=== PATIENT | female | born 1975 | race Caucasian/White ===

== ENCOUNTER 2018-04-25 17:25 | Emergency (ER) | payer BC ==
[~2018-04-25] VITALS: Ht 165.1 cm; Wt 63.5 kg
[2018-04-25 17:33] VITALS: BP_SYST 166
--- NOTE | 2018-04-25 17:33 | NUR ---
Patient to ER bed 07 to gown for evaluation. Side rails up. Report received from [address]
--- NOTE | 2018-04-25 17:35 | NUR ---
Patient presents to the ED complaining of bilateram arm numbness and left leg numbess beginning this morning. Patient reports that she has history of stroke. Denies any pain. Patient states that she wasn't feeling well this morning and took Xanax 0.25 mg and another dose of Xanax 0.25 mg prior to arrival in ED. Patient reports seeing tunnel vision as well. Patient is speaking in clear full sentences. No deficits noted. No other complaints/injuries per patient or as noted. Will continue to monitor.
--- NOTE | 2018-04-25 17:38 | NUR ---
ER Dr. Montilla at bedside examining patient.
--- NOTE | 2018-04-25 17:50 | NUR ---
# 20 gauge angiocath placed to RAC. Use of asceptic technique. Opsite placed over site. Blood return noted. Blood for lab drawn from site. Flushed with 10 cc of normal saline. No evidence of infiltration noted. Patient tolerated well.
--- NOTE | 2018-04-25 17:53 | NUR ---
Urine specimen collected and analyzed and sent to lab for analyzing. Urine HCG done, results Neg
--- NOTE | 2018-04-25 17:58 | NUR ---
EKG performed at BS by GAGANDEEP Rivera. Physician given copy of EKG for review.
[2018-04-25 18:10] LABS: BILIRUBIN,URINE NEGATIVE (NEGATIVE); BLOOD, URINE 2+ (NEGATIVE); CLARITY/URINE CLEAR (CLEAR); COLOR,URINE YELLOW (YELLOW); GLUCOSE,URINE NEGATIVE (NEGATIVE); KETONES,URINE NEGATIVE (NEGATIVE); LEUKOCYTE ESTERASE ,URINE NEGATIVE (NEGATIVE); NITRITE, URINE NEGATIVE (NEGATIVE); PROTEIN URINE NEGATIVE (NEGATIVE); UROBILINOGEN,URINE 0.2 (0.2-1.0)
[2018-04-25 18:17] LABS: WBC,URINE 0-3 /HPF (0-3)
[2018-04-25 18:17] LABS: BASOPHILS # (AUTO) 0.1 K/uL (0.0-0.2); BASOPHILS % (AUTO) 0.9 % (0.0-2.0); EOSINOPHILS # (AUTO) 0.1 K/uL (0.0-0.4); HEMOGLOBIN 13.9 g/dL (12.0-16.0); LYMPHOCYTES # (AUTO) 1.7 K/uL (1.0-5.5); LYMPHOCYTES % (AUTO) 24.7 % (20.5-51.5); MEAN CORPUSCULAR HEMOGLOBIN 31 pg (27-31); MEAN CORPUSCULAR HGB CONC 33 % (32-36); MEAN CORPUSCULAR VOLUME 93 fL (79.0-98.0); MONOCYTES # (AUTO) 0.3 K/uL (0.0-1.0); MONOCYTES % (AUTO) 4.9 % (1.7-9.3); NEUTROPHILS # (AUTO) 4.9 K/uL (1.8-7.7); NEUTROPHILS % (AUTO) 68.5 % (40.0-70.0); PLATELET COUNT (AUTO) 401 K/uL (130-430); RED BLOOD CELL COUNT(AUTO) 4.49 MIL/uL (4.2-6.2); RED CELL DISTRIBUTION WIDTH 12.8 % (9.0-15.0); WHITE BLOOD COUNT (AUTO) 7.1 K/uL (4.8-10.8)
[2018-04-25 18:18] LABS: BACTERIA,URINE FEW /HPF (None Seen)
[2018-04-25 18:24] LABS: BARBITURATE, URINE NEGATIVE (NEG <=200); BENZODIAZEPINE, URINE POSITIVE (NEG <=150); CANNABINOID, URINE NEGATIVE (NEG <=50); COCAINE, URINE NEGATIVE (NEG <=150); METHAMPHETAMINES SCREEN,URINE NEGATIVE (NEG <=500); OPIATE, URINE NEGATIVE (NEG <=100); PHENCYCLIDINE SCREEN,URINE NEGATIVE (NEG <=25); UR TRICYCLIC ANTIDEPRESSANTS NEGATIVE (NEG <=300); URINE AMPHETAMINE NEGATIVE (NEG <=500); URINE METHADONE NEGATIVE (NEG <=200); URINE OXYCODONE SCREEN NEGATIVE (NEG <=100); URINE PROPOXYPHENE SCREEN NEGATIVE (NEG <=300)
[2018-04-25 18:29] LABS: ANION GAP 10 (5-15); CALCIUM 9.3 mg/dL (8.4-11.0); CHLORIDE 103 mmol/L (98-107); CREATININE 0.75 mg/dL (0.55-1.30); GFR AFRICAN AMERICAN 109 mL/min (>90); GLUCOSE 101 mg/dL (70-99); POTASSIUM 3.6 mmol/L (3.5-5.1); SODIUM SERUM 137 mmol/L (136-145); UREA NITROGEN, BLOOD 9 mg/dL (8-21)
[2018-04-25 18:34] LABS: PROTHROMBIN TIME 10.5 SECS (9.5-12.5)
[2018-04-25 18:45] LABS: ALANINE AMINOTRANSFERASE 38 U/L (12-78); ALBUMIN 4.3 g/dL (3.4-4.8); ASPARTATE AMINOTRANSFERASE 21 U/L (10-37); FREE T4 (FREE THYROXINE) 0.4 ng/dL (0.6-1.6); TOTAL BILIRUBIN 0.5 mg/dL (0.0-1.0)
[2018-04-25 18:47] LABS: ALCOHOL, BLOOD < 3 mg/dL (<10)
--- NOTE | 2018-04-25 19:00 | NUR ---
Patient returned from Radiology in stable condition. Will continue to monitor.
[2018-04-25] MEDS ORDERED: ASPIRIN 81 MG TAB.CHEW PO ONE (19:45)
--- NOTE | 2018-04-25 19:53 | NUR ---
ASA 162 mg medicated to patient. Will continue to monitor.
--- NOTE | 2018-04-25 20:08 | NUR ---
ER Dr. Zambrano at bedside examining patient.
--- NOTE | 2018-04-25 20:55 | NUR ---
Patient resting quietly. No acute distress noted.
[2018-04-25 21:19] VITALS: BP_SYST 110
--- NOTE | 2018-04-25 21:19 | NUR ---
Patient given written and verbal discharge instructions and verbalizes understanding. ER MD discussed with patient the results and treatment provided. Patient in stable condition. ID arm band removed. IV catheter removed intact and dressing applied, no active bleeding. No Rx given. Patient educated on pain management and to follow up with PMD in 2-3 days. Pain Scale 0/10 Opportunity for questions provided and answered.
== END 2018-04-25 21:19 | disposition home or self-care (01) ==
LOC: SED 17:25
DX: F41.0 Panic disorder [episodic paroxysmal anxiety] (principal); R03.0 Elevated blood-pressure reading, without diagnosis of hypertension
CPT/HCPCS: 36415; 70450; 80053; 80307; 81000; 81025; 83605; 83880; 84439; 84484; 85025; 85610; 87040; 93005; 99285; G0482